=== PATIENT | male | born 1970 | race Caucasian/White ===

== ENCOUNTER 2022-01-18 09:12 | Emergency (ER) | payer OTHER ==
[~2022-01-18] VITALS: Ht 175.3 cm; Wt 108.9 kg
[2022-01-18 09:12] VITALS: BP_SYST 157
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
--- NOTE | 2022-01-18 09:14 | NUR ---
ER DR. RAY AT THE BEDSIDE EXAMINING PT
--- NOTE | 2022-01-18 09:15 | NUR ---
# 18 gauge angiocath placed to LAC. Use of asceptic technique. Opsite placed over site. Blood return noted. Blood for lab drawn from site. Flushed with 10 cc of normal saline. No evidence of infiltration noted. Patient tolerated well.
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
--- NOTE | 2022-01-18 09:20 | NUR ---
PT PLACED IN NC@2LPM O2 SAT 92-93% RA
[2022-01-18] MEDS ORDERED: MORPHINE 4 MG INJ. 4 MG/ML VIAL IVP ONE ×2 (09:30→10:30)
[2022-01-18] MEDS ORDERED: methylPREDNISolone SOD SUCC/PF 62.5 MG/ML VIAL IVP ONE (09:30)
[2022-01-18] MEDS ORDERED: DIPHENHYDRAMINE INJ 50 MG/ML VIAL IVP ONE (09:30)
--- NOTE | 2022-01-18 10:28 | NUR ---
pt. resting remains on O2 at 2L/min. sat 98%, remedicated for pain
[2022-01-18] MEDS ORDERED: DIPH25CA83 PO (12:44)
[2022-01-18] MEDS ORDERED: PRED50TA PO (12:44)
[2022-01-18] MEDS ORDERED: TRAM50TA PO (12:47)
[2022-01-18 13:19] VITALS: BP_SYST 128
--- NOTE | 2022-01-18 13:19 | NUR ---
Patient given written and verbal discharge instructions and verbalizes understanding. ER MD discussed with patient the results and treatment provided. Patient in stable condition. ID arm band removed. Rx of Benadryl,predsinone,tramadol given. Patient educated on pain management and to follow up with PMD. Pain Scale 0/10 . Opportunity for questions provided and answered. Medication side effect fact sheet provided.
== END 2022-01-18 13:19 | disposition home or self-care (01) ==
LOC: SED 09:12
DX: T63.441A Toxic effect of venom of bees, accidental (unintentional), initial encounter (principal); W57.XXXA Bitten or stung by nonvenomous insect and other nonvenomous arthropods, initial encounter; Y93.89 Activity, other specified; Y92.89 Other specified places as the place of occurrence of the external cause; Y99.8 Other external cause status
CPT/HCPCS: 96374; 96375; 96376; 99285; J1200; J2270; J2930